=== PATIENT | male | born 1985 | race American Indian/Alaskan Native ===

== ENCOUNTER 2024-08-12 21:51 | Inpatient (IN) | payer MEDICAID ==
[~2024-08-12] VITALS: Ht 185.4 cm; Wt 84.5 kg
[2024-08-12 22:20] LABS: BASOPHILS # (AUTO) 0.1 X10'3 (0-0.2); BASOPHILS % (AUTO) 1.2 % (0-1); EOSINOPHILS # (AUTO) 0.3 X10'3 (0-0.9); HEMATOCRIT 23.2 % (42.0-52.0); HEMOGLOBIN 7.4 g/dl (14.0-17.9); LYMPHOCYTES # (AUTO) 0.6 X10'3 (1.1-4.8); LYMPHOCYTES % (AUTO) 8.7 % (21-51); MEAN CORPUSCULAR HEMOGLOBIN 28.4 PG (27.0-31.0); MEAN CORPUSCULAR HGB CONC 31.8 g/dL (33.0-36.5); MEAN CORPUSCULAR VOLUME 89.2 FL (78-98); MEAN PLATELET VOLUME 8.5 FL (7.4-10.4); MONOCYTES # (AUTO) 0.3 X10'3 (0-0.9); MONOCYTES % (AUTO) 3.9 % (2-12); NEUTROPHILS # (AUTO) 5.5 X10'3 (1.8-7.7); NEUTROPHILS % (AUTO) 82.2 % (42-75); PLATELET COUNT 235 X10'3 (140-440); RED CELL DISTRIBUTION WIDTH 14.3 % (11.5-14.5); WHITE BLOOD COUNT 6.7 X10'3 (4.5-11.0)
[2024-08-12 22:39] LABS: ALANINE AMINOTRANSFERASE 22 U/L (12-78); ALBUMIN 3.1 G/DL (3.4-5.0); ALBUMIN/GLOBULIN RATIO 0.9 (1.1-1.5); ALKALINE PHOSPHATASE 76 IU/L (46-116); ANION GAP 19 (8-16); ASPARTATE AMINO TRANSFERASE 20 U/L (10-37); BILIRUBIN,TOTAL 0.3 MG/DL (0.1-1.0); BLOOD UREA NITROGEN 129 MG/DL (7-18); BUN/CREATININE RATIO 7.7 (10.0-20.0); CALCIUM 6.6 MG/DL (8.5-10.1); CHLORIDE 104 MMOL/L (99-107); CREATININE 16.74 MG/DL (0.60-1.10); GLUCOSE 302 MG/DL (70-104); SODIUM 139 MMOL/L (135-145); TOTAL CARBON DIOXIDE 15.7 MMOL/L (24-32); TOTAL PROTEIN 6.5 G/DL (6.4-8.2); eCRCL 7 ML/MIN; eGFR 3 ML/MIN
[2024-08-12 22:54] LABS: POTASSIUM 6.9 MMOL/L (3.5-5.1)
[2024-08-12] MEDS: PATIROMER CALCIUM SORBITEX 8.4 GM POWD.PACK PO ONE (23:00)
[2024-08-12 23:06] LABS: PRO BRAIN NATRIURETIC PEPTIDE > 30000 PG/ML (0-125)
[2024-08-12] MEDS: sodium bicarbonate (8.4%) 1 mEq/ml syringe IV ONE (23:49)
[2024-08-12] MEDS: dextrose 50%-water 50ml dispensing syringe IV ONE (23:49)
[2024-08-12] MEDS: insulin regular, human 10 units/0.1 ml syringe IV ONE (23:55)
[2024-08-12] MEDS: sodium polystyrene sulfonate 15gm/60ml oral suspension PO ONE (23:57)
[2024-08-13] VITALS (28 sets, daily range): BP systolic 127–185; BP diastolic 60–107; PULSE 77–97; RESP 13–22; TEMP 98.5; O2SAT 83–100
[2024-08-13] MEDS: CALCIUM GLUC 1gm/50ml NACL,iso 50 ML IV PRN (00:33)
[2024-08-13] MEDS: niCARDipine-NS 40mg/200ml IVPB 200 ML IV PRN (00:34)
[2024-08-13 00:35] LABS: ABG BASE EXCESS -10.1 mmol/L (-2.0-3.0); ABG HCO3 14.2 mmol/L (21.0-28.0); ABG OXYGEN SATURATION 95.3 % (94.0-98.0); ABG PCO2 (T) 25.8 mmHg (35.0-48.0); ABG PO2 (T) 87.8 mmHg (83.0-108.0); ALLEN'S TEST Modified; FCOHb 0.3 % (0.5-1.5); FHHb 4.7 % (0.0-5.0); FMetHb 0.3 % (0.0-1.5); FO2Hb 94.7 % (94.0-98.0); MODE RA; TOTAL HEMOGLOBIN 7.7 G/dl (13.5-17.5)
[2024-08-13] MEDS ORDERED: morphine 4 MG/ML inj SYRINge IV PRN (01:05)
[2024-08-13] MEDS ORDERED: acetaminophen 325mg tablet PO PRN (01:05)
[2024-08-13] MEDS: calcium gluconate inj. 3 GM in normal saline 100ml IV soln 100 ML IV ONE ×2 (01:15)
[2024-08-13] MEDS ORDERED: calcium gluconate inj. 1 GM in normal saline 100ml IV soln 40 ML IV SCH (01:20)
[2024-08-13] MEDS ORDERED: calcium gluconate inj. 1 GM in normal saline 100ml IV soln 40 ML IV ONE (01:25)
[2024-08-13 02:22] LABS: PHOSPHORUS 10.4 MG/DL (2.3-4.5)
[2024-08-13] MEDS: ondansetron/PF 4mg/2ml inj IV PRN (02:39)
[2024-08-13] MEDS: morphine 2 MG/ML inj. syringe IV PRN (03:09)
[2024-08-13 04:33] LABS: BILIRUBIN,URINE NEGATIVE (Neg); CLARITY,URINE CLEAR (Clear); COLOR,URINE STRAW (Yellow); GLUCOSE, URINE 250 mg/dl (Neg); KETONES,URINE NEGATIVE (Neg); LEUKOCYTE ESTERASE ,URINE NEGATIVE (Neg); NITRITES, URINE NEGATIVE (Neg); OCCULT BLOOD,URINE SMALL (Neg); PROTEIN,URINE >=300 mg/dl (Neg); UROBILINOGEN,URINE 0.2 E.U/dL (0.2-1.0)
[2024-08-13 04:36] LABS: UA COLLECTION TYPE CLN CATCH MIDSTREAM
[2024-08-13] MEDS ORDERED: glucagon, human recombinant 1mg kit SUBCUT PRN (04:40)
[2024-08-13] MEDS ORDERED: DEXTROSE 15 GM of carb/4 tabs (each vial/BOTTLE has 4 tablets) PO PRN ×2 (04:40)
[2024-08-13] MEDS: proCHLORperazine 10 MG/2 ml inj IV ONE (04:40)
[2024-08-13 04:43] LABS: BACTERIA,URINE FEW /HPF (Neg); MUCUS STRANDS NONE SEEN /LPF (Neg); SQUAMOUS EPITHELIAL CELL,UR FEW /LPF (FEW)
[2024-08-13 04:44] LABS: HEMOGLOBIN A1C 7.7 % (4.5-6.2)
[2024-08-13 04:46] LABS: WBC CLUMPS,URINE FEW /HPF (NEGATIVE)
[2024-08-13 04:46] LABS: ALANINE AMINOTRANSFERASE 21 U/L (12-78); ALKALINE PHOSPHATASE 70 IU/L (46-116); ANION GAP 21 (8-16); ASPARTATE AMINO TRANSFERASE 19 U/L (10-37); BILIRUBIN,TOTAL 0.3 MG/DL (0.1-1.0); BLOOD UREA NITROGEN 131 MG/DL (7-18); BUN/CREATININE RATIO 8.2 (10.0-20.0); CALCIUM 7.3 MG/DL (8.5-10.1); CHLORIDE 105 MMOL/L (99-107); CREATININE 15.96 MG/DL (0.60-1.10); GLUCOSE 224 MG/DL (70-104); POTASSIUM 5.5 MMOL/L (3.5-5.1); SODIUM 140 MMOL/L (135-145); TOTAL PROTEIN 6.1 G/DL (6.4-8.2); eCRCL 7 ML/MIN; eGFR 3 ML/MIN
[2024-08-13] MEDS: amLODIPine 5mg tablet PO ONE (04:46)
[2024-08-13 04:48] LABS: TOTAL CARBON DIOXIDE 14.5 MMOL/L (24-32)
[2024-08-13 05:13] LABS: TOTAL PROTEIN,URINE RANDOM 677.9 MG/DL
[2024-08-13] MEDS: sodium bicarbonate 650mg tablet PO SCH (08:00)
[2024-08-13 08:09] LABS: HEMOGLOBIN A1C 7.5 % (4.5-6.2)
[2024-08-13] MEDS: calcium acetate 667mg (PhosLO) capsule PO SCH (08:15)
[2024-08-13 08:24] LABS: BASOPHILS # (AUTO) 0.1 X10'3 (0-0.2); EOSINOPHILS # (AUTO) 0.1 X10'3 (0-0.9); EOSINOPHILS % (AUTO) 0.8 % (0-6); HEMATOCRIT 23.4 % (42.0-52.0); HEMOGLOBIN 7.4 g/dl (14.0-17.9); LYMPHOCYTES # (AUTO) 1.1 X10'3 (1.1-4.8); LYMPHOCYTES % (AUTO) 14.4 % (21-51); MEAN CORPUSCULAR HEMOGLOBIN 28.4 PG (27.0-31.0); MEAN CORPUSCULAR HGB CONC 31.6 g/dL (33.0-36.5); MEAN CORPUSCULAR VOLUME 89.8 FL (78-98); MEAN PLATELET VOLUME 9.3 FL (7.4-10.4); MONOCYTES # (AUTO) 0.3 X10'3 (0-0.9); MONOCYTES % (AUTO) 3.6 % (2-12); NEUTROPHILS # (AUTO) 6.3 X10'3 (1.8-7.7); NEUTROPHILS % (AUTO) 80.2 % (42-75); PLATELET COUNT 240 X10'3 (140-440); RED CELL DISTRIBUTION WIDTH 14.1 % (11.5-14.5); WHITE BLOOD COUNT 7.9 X10'3 (4.5-11.0)
[2024-08-13] MEDS: INSULIN LISPRO 100 UNIT/ML INSULN.PEN MULTI-DOSE SQ SCH ×2 (08:26→12:00)
[2024-08-13 08:39] LABS: APTT 27 SECONDS (22-32); INR 1.1 INR; PROTHROMBIN TIME 11.8 SECONDS (9.0-12.0)
[2024-08-13] MEDS ORDERED: normal saline 1000ml 100 ML IV PRN (08:40)
[2024-08-13 08:53] LABS: MAGNESIUM 2.3 MG/DL (1.5-2.4)
[2024-08-13] MEDS ORDERED: sodium bicarbonate (8.4%) inj. 50 MEQ in dextrose 5% water 500ml 250 ML IV PRN (09:00)
[2024-08-13] MEDS ORDERED: potassium Cl 20 mEq SR tablet PO PRN ×2 (09:00)
[2024-08-13] MEDS ORDERED: Neutra Phos packet PO PRN (09:00)
[2024-08-13] MEDS ORDERED: sodium bicarbonate (8.4%) inj. 100 MEQ in dextrose 5% water 500ml 500 ML IV PRN (09:00)
[2024-08-13] MEDS ORDERED: potassium Cl 40MEQ/1/2NS 520ml 520 ML IV PRN (09:00)
[2024-08-13] MEDS ORDERED: sodium phosphate inj. 15 MMOL in dextrose 5%-water 250 ML IV PRN (09:00)
[2024-08-13] MEDS ORDERED: dextrose 50%-water 50ml dispensing syringe IV PRN (09:00)
[2024-08-13] MEDS: normal saline 1000ml 1,000 ML IV SCH ×2 (09:00→11:19)
[2024-08-13] MEDS ORDERED: potassium CL 20mEq in D5-1/2NS 1,000 ML IV PRN (09:00)
[2024-08-13] MEDS ORDERED: normal saline 1000ml 1,000 ML IV SCH (09:00)
[2024-08-13] MEDS ORDERED: sodium phosphate inj. 30 MMOL in dextrose 5%-water 250 ML IV PRN (09:00)
[2024-08-13 09:10] LABS: PHOSPHORUS 10.1 MG/DL (2.3-4.5)
[2024-08-13] MEDS: tuberculin, purif. prot. deriv. 5 units/0.1ml ID ONE (09:53)
[2024-08-13] MEDS: insulin regular, human U-100 10ml vial - multi-dose SQ ONE (11:29)
[2024-08-13 11:32] LABS: ALBUMIN 3.2 G/DL (3.4-5.0); ANION GAP 25 (8-16); BLOOD UREA NITROGEN 133 MG/DL (7-18); BUN/CREATININE RATIO 7.9 (10.0-20.0); CALCIUM 7.3 MG/DL (8.5-10.1); CHLORIDE 101 MMOL/L (99-107); CREATININE 16.81 MG/DL (0.60-1.10); GLUCOSE 376 MG/DL (70-104); SODIUM 137 MMOL/L (135-145); eCRCL 7 ML/MIN; eGFR 3 ML/MIN
[2024-08-13] MEDS: insulin regular, human U-100 10ml vial - multi-dose IV ONE (11:33)
[2024-08-13 11:37] LABS: POTASSIUM 7.1 MMOL/L (3.5-5.1); TOTAL CARBON DIOXIDE 11.3 MMOL/L (24-32)
[2024-08-13] MEDS: Insulin Reg/NS 100units/100mL 100 ML IV SCH (11:50)
[2024-08-13] MEDS: proCHLORperazine 10 MG/2 ml inj IV PRN (11:51)
[2024-08-13] MEDS: insulin regular, human 10 units/0.1 ml syringe IV ONE ×2 (11:56)
[2024-08-13] MEDS: sodium bicarbonate (8.4%) 1 mEq/ml syringe IV ONE (12:45)
[2024-08-13] MEDS: CALCIUM GLUC 1gm/50ml NACL,iso 50 ML IV ONE (12:46)
[2024-08-13 15:35] LABS: ALBUMIN 2.9 G/DL (3.4-5.0); ANION GAP 23 (8-16); BLOOD UREA NITROGEN 140 MG/DL (7-18); BUN/CREATININE RATIO 8.2 (10.0-20.0); CALCIUM 7.2 MG/DL (8.5-10.1); CHLORIDE 104 MMOL/L (99-107); CREATININE 17.15 MG/DL (0.60-1.10); GLUCOSE 260 MG/DL (70-104); SODIUM 141 MMOL/L (135-145); eCRCL 7 ML/MIN; eGFR 3 ML/MIN
[2024-08-13 15:36] LABS: PHOSPHORUS 10.1 MG/DL (2.3-4.5)
[2024-08-13 15:37] LABS: TOTAL CARBON DIOXIDE 13.8 MMOL/L (24-32)
[2024-08-13] MEDS: dextrose 5%-1/2 normal saline 1,000 ML IV SCH (15:46)
[2024-08-13] MEDS: heparin 1,000 units/ml 10ml inj HE ONE ×2 (16:17)
[2024-08-13] MEDS: mannitol 12.5gm/50mL VIAL IV ONE (16:42)
[2024-08-13] MEDS ORDERED: METO-411 PO (16:58)
[2024-08-13] MEDS ORDERED: DILT240C52 PO (16:58)
[2024-08-13] MEDS ORDERED: INSU100C10 SQ (16:58)
[2024-08-13] MEDS ORDERED: CLON0.1T2 PO (16:58)
[2024-08-13] MEDS ORDERED: LISI40TA13 PO (16:58)
[2024-08-13] MEDS: hydrALAZINE 20mg/ml inj. IV ONE ×2 (17:35→20:51)
[2024-08-13] MEDS: hydrALAZINE 20mg/ml inj. ONE (17:39)
[2024-08-13] MEDS: metoprolol succinate 25mg (24-HOUR) SR. Tablet PO SCH (17:44)
[2024-08-13] MEDS: acetaminophen 325mg tablet PO PRN (17:50)
[2024-08-13] MEDS: DEXTROSE 10 % AND 0.45 % NACL 1,000 ML IV SCH (18:52)
[2024-08-13] MEDS: COMMUNICATION ORDER 1 EA MISC MC ONE (18:53)
[2024-08-13] MEDS: K and/or MAG REPLACEMENT MC SCH (18:54)
[2024-08-13] MEDS: insulin glargine (Lantus) pen - multi-dose SQ SCH (18:55)
[2024-08-13 19:52] LABS: ALANINE AMINOTRANSFERASE 26 U/L (12-78); ALBUMIN 2.8 G/DL (3.4-5.0); ALBUMIN/GLOBULIN RATIO 0.9 (1.1-1.5); ALKALINE PHOSPHATASE 68 IU/L (46-116); ANION GAP 14 (8-16); ASPARTATE AMINO TRANSFERASE 30 U/L (10-37); BILIRUBIN,TOTAL 0.4 MG/DL (0.1-1.0); BLOOD UREA NITROGEN 79 MG/DL (7-18); BUN/CREATININE RATIO 7.8 (10.0-20.0); CALCIUM 8.3 MG/DL (8.5-10.1); CHLORIDE 103 MMOL/L (99-107); CREATININE 10.18 MG/DL (0.60-1.10); GLUCOSE 75 MG/DL (70-104); PHOSPHORUS 6.3 MG/DL (2.3-4.5); POTASSIUM 3.7 MMOL/L (3.5-5.1); SODIUM 140 MMOL/L (135-145); TOTAL CARBON DIOXIDE 22.8 MMOL/L (24-32); eCRCL 11 ML/MIN; eGFR 6 ML/MIN
[2024-08-14] VITALS (34 sets, daily range): BP systolic 132–188; BP diastolic 57–98; PULSE 66–89; RESP 9–20; TEMP 97.9–98; O2SAT 87–98
[2024-08-14 00:14] LABS: TOTAL PROTEIN,URINE RANDOM 692.4 MG/DL
[2024-08-14] MEDS: insulin Lispro (HumaLOG) vial - multi-dose SQ ONE (03:28)
[2024-08-14 04:05] LABS: BASOPHILS # (AUTO) 0.1 X10'3 (0-0.2); BASOPHILS % (AUTO) 0.8 % (0-1); EOSINOPHILS % (AUTO) 0.5 % (0-6); HEMOGLOBIN 7.7 g/dl (14.0-17.9); LYMPHOCYTES # (AUTO) 0.6 X10'3 (1.1-4.8); LYMPHOCYTES % (AUTO) 6.9 % (21-51); MEAN CORPUSCULAR HEMOGLOBIN 28.3 PG (27.0-31.0); MEAN CORPUSCULAR HGB CONC 32.1 g/dL (33.0-36.5); MEAN CORPUSCULAR VOLUME 87.9 FL (78-98); MEAN PLATELET VOLUME 9.1 FL (7.4-10.4); MONOCYTES # (AUTO) 0.3 X10'3 (0-0.9); MONOCYTES % (AUTO) 3.7 % (2-12); NEUTROPHILS # (AUTO) 7.5 X10'3 (1.8-7.7); NEUTROPHILS % (AUTO) 88.1 % (42-75); PLATELET COUNT 240 X10'3 (140-440); RED BLOOD COUNT 2.73 X10'6 (4.70-6.10); RED CELL DISTRIBUTION WIDTH 13.9 % (11.5-14.5); WHITE BLOOD COUNT 8.5 X10'3 (4.5-11.0)
[2024-08-14 04:30] LABS: ALANINE AMINOTRANSFERASE 27 U/L (12-78); ALBUMIN 2.9 G/DL (3.4-5.0); ALBUMIN/GLOBULIN RATIO 0.9 (1.1-1.5); ALKALINE PHOSPHATASE 72 IU/L (46-116); ANION GAP 23 (8-16); ASPARTATE AMINO TRANSFERASE 26 U/L (10-37); BILIRUBIN,TOTAL 0.5 MG/DL (0.1-1.0); BLOOD UREA NITROGEN 86 MG/DL (7-18); BUN/CREATININE RATIO 7.5 (10.0-20.0); CALCIUM 7.9 MG/DL (8.5-10.1); CHLORIDE 98 MMOL/L (99-107); CREATININE 11.51 MG/DL (0.60-1.10); FREE T4 (FREE THYROXINE) 1.14 NG/DL (0.73-1.40); GLUCOSE 384 MG/DL (70-104); LACTATE DEHYDROGENASE 303 U/L (85-227); MAGNESIUM 1.9 MG/DL (1.5-2.4); PHOSPHORUS 8.1 MG/DL (2.3-4.5); POTASSIUM 5.6 MMOL/L (3.5-5.1); SODIUM 136 MMOL/L (135-145); THYROID STIMULATING HORMONE 2.66 ulU/ml (0.34-4.50); TOTAL PROTEIN 6.2 G/DL (6.4-8.2); eCRCL 10 ML/MIN; eGFR 5 ML/MIN
[2024-08-14 04:37] LABS: TOTAL CARBON DIOXIDE 14.6 MMOL/L (24-32)
[2024-08-14] MEDS: Insulin Reg/NS 100units/100mL 100 ML IV SCH (04:55)
[2024-08-14] MEDS: DEXTROSE 10 % AND 0.45 % NACL 1,000 ML IV SCH (04:55)
[2024-08-14] MEDS: insulin regular, human U-100 10ml vial - multi-dose IV ONE (06:14)
[2024-08-14] MEDS: insulin regular, human 10 units/0.1 ml syringe IV ONE ×2 (07:15→08:14)
[2024-08-14] MEDS: diltiazem CD 120mg capsule (once-daily) PO SCH (07:20)
[2024-08-14] MEDS: COMMUNICATION ORDER 1 EA MISC MC ONE (10:10)
[2024-08-14 10:15] LABS: ALBUMIN 2.6 G/DL (3.4-5.0); ANION GAP 15 (8-16); BLOOD UREA NITROGEN 93 MG/DL (7-18); BUN/CREATININE RATIO 7.8 (10.0-20.0); CALCIUM 7.8 MG/DL (8.5-10.1); CHLORIDE 104 MMOL/L (99-107); CREATININE 11.93 MG/DL (0.60-1.10); GLUCOSE 98 MG/DL (70-104); MAGNESIUM 1.9 MG/DL (1.5-2.4); PHOSPHORUS 8.4 MG/DL (2.3-4.5); POTASSIUM 3.7 MMOL/L (3.5-5.1); SODIUM 141 MMOL/L (135-145); TOTAL CARBON DIOXIDE 21.6 MMOL/L (24-32); eCRCL 10 ML/MIN; eGFR 5 ML/MIN
[2024-08-14] MEDS: dextrose 50%-water 50ml dispensing syringe IV PRN ×2 (10:58→12:03)
[2024-08-14] MEDS: hydrALAZINE 20mg/ml inj. IV ONE (14:38)
[2024-08-14] MEDS: metoprolol tartrate 50mg tablet PO SCH (14:39)
[2024-08-14] MEDS: heparin 1,000 units/ml 10ml inj HE ONE ×2 (14:42→14:43)
[2024-08-14] MEDS: mannitol 12.5gm/50mL VIAL IV ONE (14:44)
[2024-08-14 18:29] LABS: ALBUMIN 2.7 G/DL (3.4-5.0); ANION GAP 15 (8-16); BLOOD UREA NITROGEN 51 MG/DL (7-18); BUN/CREATININE RATIO 7.1 (10.0-20.0); CALCIUM 8.4 MG/DL (8.5-10.1); CHLORIDE 100 MMOL/L (99-107); CREATININE 7.17 MG/DL (0.60-1.10); GLUCOSE 160 MG/DL (70-104); MAGNESIUM 1.7 MG/DL (1.5-2.4); PHOSPHORUS 5.2 MG/DL (2.3-4.5); POTASSIUM 4.2 MMOL/L (3.5-5.1); SODIUM 136 MMOL/L (135-145); TOTAL CARBON DIOXIDE 20.9 MMOL/L (24-32); eCRCL 16 ML/MIN; eGFR 9 ML/MIN
[2024-08-14] MEDS: hydrALAZINE 20mg/ml inj. IV SCH (19:52)
[2024-08-15] VITALS (15 sets, daily range): BP systolic 152–194; BP diastolic 62–102; PULSE 66–87; RESP 11–16; TEMP 97.7–98.8; O2SAT 97–99
[2024-08-15 02:31] LABS: BASOPHILS # (AUTO) 0.1 X10'3 (0-0.2); BASOPHILS % (AUTO) 0.6 % (0-1); EOSINOPHILS # (AUTO) 0.1 X10'3 (0-0.9); EOSINOPHILS % (AUTO) 0.7 % (0-6); HEMATOCRIT 25.9 % (42.0-52.0); HEMOGLOBIN 8.5 g/dl (14.0-17.9); LYMPHOCYTES # (AUTO) 0.9 X10'3 (1.1-4.8); LYMPHOCYTES % (AUTO) 11.3 % (21-51); MEAN CORPUSCULAR HEMOGLOBIN 28.6 PG (27.0-31.0); MEAN CORPUSCULAR HGB CONC 32.8 g/dL (33.0-36.5); MEAN CORPUSCULAR VOLUME 87.2 FL (78-98); MEAN PLATELET VOLUME 8.5 FL (7.4-10.4); MONOCYTES # (AUTO) 0.4 X10'3 (0-0.9); MONOCYTES % (AUTO) 4.8 % (2-12); NEUTROPHILS # (AUTO) 6.6 X10'3 (1.8-7.7); NEUTROPHILS % (AUTO) 82.6 % (42-75); PLATELET COUNT 258 X10'3 (140-440); RED BLOOD COUNT 2.98 X10'6 (4.70-6.10)
[2024-08-15 02:50] LABS: ALANINE AMINOTRANSFERASE 26 U/L (12-78); ALBUMIN 2.6 G/DL (3.4-5.0); ALBUMIN/GLOBULIN RATIO 0.8 (1.1-1.5); ALKALINE PHOSPHATASE 66 IU/L (46-116); ANION GAP 14 (8-16); ASPARTATE AMINO TRANSFERASE 21 U/L (10-37); BILIRUBIN,TOTAL 0.3 MG/DL (0.1-1.0); BLOOD UREA NITROGEN 56 MG/DL (7-18); BUN/CREATININE RATIO 6.9 (10.0-20.0); CALCIUM 7.9 MG/DL (8.5-10.1); CHLORIDE 103 MMOL/L (99-107); CREATININE 8.17 MG/DL (0.60-1.10); GLUCOSE 139 MG/DL (70-104); MAGNESIUM 1.8 MG/DL (1.5-2.4); PHOSPHORUS 7.2 MG/DL (2.3-4.5); POTASSIUM 4.3 MMOL/L (3.5-5.1); SODIUM 140 MMOL/L (135-145); TOTAL CARBON DIOXIDE 22.7 MMOL/L (24-32); TOTAL PROTEIN 5.9 G/DL (6.4-8.2); eCRCL 14 ML/MIN; eGFR 7 ML/MIN
[2024-08-15] MEDS: calcium carbonate 500mg chew tablet PO SCH (12:25)
[2024-08-15] MEDS: INSULIN LISPRO 100 UNIT/ML INSULN.PEN MULTI-DOSE SQ SCH (17:40)
[2024-08-15] MEDS: pantoprazole 40mg Tablet.DR PO SCH (17:45)
[2024-08-15] MEDS: insulin glargine (Lantus) pen - multi-dose SQ SCH (21:28)
[2024-08-16] VITALS (12 sets, daily range): BP systolic 152–179; BP diastolic 71–88; PULSE 69–79; RESP 14–20; TEMP 97.9–98.6; O2SAT 92–99
[2024-08-16 06:37] LABS: BASOPHILS % (AUTO) 0.3 % (0-1); EOSINOPHILS % (AUTO) 0 % (0-6); HEMATOCRIT 26.4 % (42.0-52.0); HEMOGLOBIN 8.2 g/dl (14.0-17.9); LYMPHOCYTES # (AUTO) 0.3 X10'3 (1.1-4.8); LYMPHOCYTES % (AUTO) 2.2 % (21-51); MEAN CORPUSCULAR HEMOGLOBIN 28.1 PG (27.0-31.0); MEAN CORPUSCULAR HGB CONC 30.9 g/dL (33.0-36.5); MEAN CORPUSCULAR VOLUME 90.7 FL (78-98); MEAN PLATELET VOLUME 9.5 FL (7.4-10.4); MONOCYTES # (AUTO) 0.4 X10'3 (0-0.9); MONOCYTES % (AUTO) 2.8 % (2-12); NEUTROPHILS # (AUTO) 13.1 X10'3 (1.8-7.7); NEUTROPHILS % (AUTO) 94.7 % (42-75); PLATELET COUNT 286 X10'3 (140-440); RED BLOOD COUNT 2.91 X10'6 (4.70-6.10); RED CELL DISTRIBUTION WIDTH 14.2 % (11.5-14.5); WHITE BLOOD COUNT 13.8 X10'3 (4.5-11.0)
[2024-08-16 07:03] LABS: ALANINE AMINOTRANSFERASE 23 U/L (12-78); ALBUMIN/GLOBULIN RATIO 0.9 (1.1-1.5); ALKALINE PHOSPHATASE 77 IU/L (46-116); ANION GAP 30 (8-16); ASPARTATE AMINO TRANSFERASE 16 U/L (10-37); BILIRUBIN,TOTAL 0.5 MG/DL (0.1-1.0); BLOOD UREA NITROGEN 80 MG/DL (7-18); BUN/CREATININE RATIO 7.2 (10.0-20.0); CHLORIDE 86 MMOL/L (99-107); CREATININE 11.12 MG/DL (0.60-1.10); MAGNESIUM 1.9 MG/DL (1.5-2.4); POTASSIUM 5.1 MMOL/L (3.5-5.1); SODIUM 130 MMOL/L (135-145); TOTAL PROTEIN 6.4 G/DL (6.4-8.2); eCRCL 10 ML/MIN; eGFR 5 ML/MIN
[2024-08-16 07:04] LABS: PHOSPHORUS 9.9 MG/DL (2.3-4.5)
[2024-08-16 07:05] LABS: GLUCOSE 656 MG/DL (70-104); TOTAL CARBON DIOXIDE 14.1 MMOL/L (24-32)
[2024-08-16] MEDS: INSULIN LISPRO 100 UNIT/ML INSULN.PEN MULTI-DOSE SQ SCH ×3 (07:30→21:00)
[2024-08-16] MEDS: insulin glargine (Lantus) pen - multi-dose SQ SCH ×2 (08:00→21:19)
[2024-08-16] MEDS ORDERED: albumin (human) 25% 100ml IV 100 ML IV PRN ×2 (08:00)
[2024-08-16 08:12] LABS: ANTISTREPTOLYSIN O AB 69.1 IU/mL (0.0-200.0); COMPLEMENT C3, SERUM 99 mg/dL (82-167); COMPLEMENT C4, SERUM 25 mg/dL (12-38)
[2024-08-16] MEDS: insulin regular, human U-100 10ml vial - multi-dose IV ONE (08:17)
[2024-08-16] MEDS: normal saline 1000ml 1,000 ML IV ONE ×3 (11:00→11:50)
[2024-08-16] MEDS ORDERED: normal saline 1000ml 1,000 ML IV SCH (11:50)
[2024-08-16] MEDS: normal saline 1000ml 1,000 ML IV SCH (12:10)
[2024-08-16] MEDS ORDERED: potassium CL 20mEq in D5-1/2NS 1,000 ML IV PRN (12:10)
[2024-08-16] MEDS ORDERED: dextrose 50%-water 50ml dispensing syringe IV PRN (12:10)
[2024-08-16] MEDS ORDERED: sodium bicarbonate (8.4%) inj. 50 MEQ in dextrose 5% water 500ml 250 ML IV PRN (12:10)
[2024-08-16] MEDS ORDERED: sodium bicarbonate (8.4%) inj. 100 MEQ in dextrose 5% water 500ml 500 ML IV PRN (12:10)
[2024-08-16] MEDS ORDERED: INSULIN LISPRO 100 UNIT/ML INSULN.PEN MULTI-DOSE SQ SCH (12:30)
[2024-08-16] MEDS: Insulin Reg/NS 100units/100mL 100 ML IV SCH (13:04)
[2024-08-16] MEDS: INSULIN LISPRO 100 UNIT/ML INSULN.PEN MULTI-DOSE SQ ONE (13:08)
[2024-08-16 13:16] LABS: ANTINUCLEAR ANTIBODIES Negative (Negative)
[2024-08-16] MEDS: metoclopramide 5 mg/ml inj IV PRN (13:56)
[2024-08-16] MEDS: acetaminophen w/codeine (30MG) #3 tablet PO PRN (14:10)
[2024-08-16] MEDS: EPOETIN ALFA-EPBX 20,000 UNIT/ML 1 ML MDV IV ONE ×2 (14:31→14:37)
[2024-08-16] MEDS: heparin 1,000 units/ml 10ml inj HE ONE ×4 (14:33→14:35)
[2024-08-16] MEDS: heparin 1,000 units/ml 10ml inj IV ONE ×2 (14:35)
[2024-08-16] MEDS: heparin 1,000unit/ml 10ml vial 10 ML IV ONE ×2 (14:36)
[2024-08-16 16:07] LABS: ALBUMIN 2.5 G/DL (3.4-5.0); ANION GAP 10 (8-16); BLOOD UREA NITROGEN 37 MG/DL (7-18); CALCIUM 8.2 MG/DL (8.5-10.1); CHLORIDE 101 MMOL/L (99-107); CREATININE 5.32 MG/DL (0.60-1.10); GLUCOSE 156 MG/DL (70-104); POTASSIUM 3.5 MMOL/L (3.5-5.1); SODIUM 136 MMOL/L (135-145); TOTAL CARBON DIOXIDE 25.4 MMOL/L (24-32); eCRCL 22 ML/MIN; eGFR 12 ML/MIN
[2024-08-16 16:37] LABS: STREP A SCREEN NEGATIVE (Neg)
[2024-08-17 02:00] VITALS: BP 170/89; PULSE 74; RESP 14; TEMP 98.1; O2SAT 98
[2024-08-17 05:19] LABS: HBSAG SCREEN Negative (Negative); HEP A AB, IGM Negative (Negative); HEP B CORE AB, IGM Negative (Negative); HEPATITIS C VIRUS ANTIBODY Non Reactive (Non Reactive)
[2024-08-17 06:02] LABS: BASOPHILS % (AUTO) 0.1 % (0-1); EOSINOPHILS % (AUTO) 0.2 % (0-6); HEMATOCRIT 23.4 % (42.0-52.0); HEMOGLOBIN 7.5 g/dl (14.0-17.9); LYMPHOCYTES # (AUTO) 0.9 X10'3 (1.1-4.8); LYMPHOCYTES % (AUTO) 7.4 % (21-51); MEAN CORPUSCULAR HEMOGLOBIN 27.6 PG (27.0-31.0); MEAN CORPUSCULAR HGB CONC 31.9 g/dL (33.0-36.5); MEAN CORPUSCULAR VOLUME 86.6 FL (78-98); MEAN PLATELET VOLUME 8.6 FL (7.4-10.4); MONOCYTES # (AUTO) 0.7 X10'3 (0-0.9); MONOCYTES % (AUTO) 5.5 % (2-12); NEUTROPHILS % (AUTO) 86.8 % (42-75); PLATELET COUNT 235 X10'3 (140-440); RED CELL DISTRIBUTION WIDTH 13.7 % (11.5-14.5); WHITE BLOOD COUNT 12.7 X10'3 (4.5-11.0)
[2024-08-17 06:18] LABS: ALANINE AMINOTRANSFERASE 20 U/L (12-78); ALBUMIN 2.5 G/DL (3.4-5.0); ALBUMIN/GLOBULIN RATIO 0.8 (1.1-1.5); ALKALINE PHOSPHATASE 63 IU/L (46-116); ANION GAP 15 (8-16); ASPARTATE AMINO TRANSFERASE 17 U/L (10-37); BILIRUBIN,TOTAL 0.3 MG/DL (0.1-1.0); BLOOD UREA NITROGEN 44 MG/DL (7-18); BUN/CREATININE RATIO 6.5 (10.0-20.0); CALCIUM 7.8 MG/DL (8.5-10.1); CHLORIDE 94 MMOL/L (99-107); CREATININE 6.77 MG/DL (0.60-1.10); GLUCOSE 139 MG/DL (70-104); MAGNESIUM 1.8 MG/DL (1.5-2.4); PHOSPHORUS 5.6 MG/DL (2.3-4.5); POTASSIUM 3.8 MMOL/L (3.5-5.1); SODIUM 131 MMOL/L (135-145); TOTAL CARBON DIOXIDE 21.7 MMOL/L (24-32); TOTAL PROTEIN 5.5 G/DL (6.4-8.2); eCRCL 17 ML/MIN; eGFR 9 ML/MIN
[2024-08-17 07:00] VITALS: BP 170/70; PULSE 72; RESP 14; TEMP 98.1; O2SAT 94
[2024-08-17] MEDS: INSULIN LISPRO 100 UNIT/ML INSULN.PEN MULTI-DOSE SQ SCH ×2 (07:30→13:08)
[2024-08-17 08:26] VITALS: PULSE 78; RESP 16; O2SAT 98
[2024-08-17 11:00] VITALS: BP 165/76; PULSE 69; RESP 15; TEMP 98.4; O2SAT 98
[2024-08-17] MEDS: NUT.TX.IMP.RENAL FXN,LAC-REDUC (Nepro) 237 ML VANILLA PO SCH (18:00)
[2024-08-17] MEDS: cloNIDine 0.2 MG/24 HR patch (7 day patch) TD ONE (21:10)
[2024-08-17 22:00] VITALS: BP 155/61; PULSE 72; RESP 16; TEMP 98.5; O2SAT 96
[2024-08-18] VITALS (16 sets, daily range): BP systolic 143–197; BP diastolic 57–99; PULSE 72–91; RESP 12–18; TEMP 97.8–99.3; O2SAT 95–98
[2024-08-18] MEDS: metoclopramide 5 mg/ml inj IV SCH (02:00)
[2024-08-18 07:24] LABS: BASOPHILS % (AUTO) 0.2 % (0-1); EOSINOPHILS # (AUTO) 0.1 X10'3 (0-0.9); EOSINOPHILS % (AUTO) 0.8 % (0-6); HEMATOCRIT 22.8 % (42.0-52.0); HEMOGLOBIN 7.9 g/dl (14.0-17.9); LYMPHOCYTES % (AUTO) 9.6 % (21-51); MEAN CORPUSCULAR HEMOGLOBIN 29.3 PG (27.0-31.0); MEAN CORPUSCULAR HGB CONC 34.5 g/dL (33.0-36.5); MEAN PLATELET VOLUME 8.6 FL (7.4-10.4); MONOCYTES # (AUTO) 0.7 X10'3 (0-0.9); MONOCYTES % (AUTO) 6.8 % (2-12); NEUTROPHILS % (AUTO) 82.6 % (42-75); PLATELET COUNT 243 X10'3 (140-440); RED BLOOD COUNT 2.68 X10'6 (4.70-6.10); RED CELL DISTRIBUTION WIDTH 13.1 % (11.5-14.5); WHITE BLOOD COUNT 10.9 X10'3 (4.5-11.0)
[2024-08-18 07:45] LABS: ALANINE AMINOTRANSFERASE 25 U/L (12-78); ALBUMIN 2.4 G/DL (3.4-5.0); ALBUMIN/GLOBULIN RATIO 0.8 (1.1-1.5); ALKALINE PHOSPHATASE 66 IU/L (46-116); ANION GAP 13 (8-16); ASPARTATE AMINO TRANSFERASE 24 U/L (10-37); BILIRUBIN,TOTAL 0.3 MG/DL (0.1-1.0); BLOOD UREA NITROGEN 57 MG/DL (7-18); CALCIUM 7.4 MG/DL (8.5-10.1); CHLORIDE 84 MMOL/L (99-107); CREATININE 8.11 MG/DL (0.60-1.10); GLUCOSE 98 MG/DL (70-104); MAGNESIUM 1.6 MG/DL (1.5-2.4); PHOSPHORUS 5.9 MG/DL (2.3-4.5); POTASSIUM 3.7 MMOL/L (3.5-5.1); TOTAL CARBON DIOXIDE 22.5 MMOL/L (24-32); TOTAL PROTEIN 5.5 G/DL (6.4-8.2); eCRCL 14 ML/MIN; eGFR 8 ML/MIN
[2024-08-18 07:51] LABS: SODIUM 119 MMOL/L (135-145)
[2024-08-18] MEDS ORDERED: albumin (human) 25% 100ml IV 100 ML IV PRN (08:00)
[2024-08-18] MEDS ORDERED: normal saline 1000ml 1,000 ML IV ONE (08:35)
[2024-08-18] MEDS: EPOETIN ALFA-EPBX 20,000 UNIT/ML 1 ML MDV IV ONE (09:49)
[2024-08-18] MEDS: heparin 1,000unit/ml 10ml vial 10 ML IV ONE (09:50)
[2024-08-18] MEDS: heparin 1,000 units/ml 10ml inj HE ONE ×2 (09:51)
[2024-08-18] MEDS: heparin 1,000 units/ml 10ml inj IV ONE (09:52)
[2024-08-18] MEDS: azithromycin 250mg tablet PO SCH (12:26)
[2024-08-18] MEDS: INSULIN LISPRO 100 UNIT/ML INSULN.PEN MULTI-DOSE SQ SCH ×2 (12:30→17:30)
[2024-08-18 13:17] LABS: ATYPICAL PANCA <1:20 titer (Neg:<1:20); CYTOPLASMIC (C-ANCA) <1:20 titer (Neg:<1:20); PERINUCLEAR (P-ANCA) <1:20 titer (Neg:<1:20)
[2024-08-19] VITALS (8 sets, daily range): BP systolic 148–181; BP diastolic 60–91; PULSE 69–87; RESP 13–19; TEMP 97.7–98.9; O2SAT 92–99
[2024-08-19] MEDS: INSULIN LISPRO 100 UNIT/ML INSULN.PEN MULTI-DOSE SQ SCH (07:30)
[2024-08-19] MEDS: metoprolol succinate 25mg (24-HOUR) SR. Tablet PO SCH (08:53)
[2024-08-19 10:07] LABS: BASOPHILS % (AUTO) 0.6 % (0-1); EOSINOPHILS # (AUTO) 0.2 X10'3 (0-0.9); LYMPHOCYTES # (AUTO) 0.8 X10'3 (1.1-4.8); LYMPHOCYTES % (AUTO) 14.1 % (21-51); MEAN CORPUSCULAR HEMOGLOBIN 28.6 PG (27.0-31.0); MEAN CORPUSCULAR HGB CONC 33.6 g/dL (33.0-36.5); MEAN CORPUSCULAR VOLUME 85.2 FL (78-98); MEAN PLATELET VOLUME 8.3 FL (7.4-10.4); MONOCYTES # (AUTO) 0.5 X10'3 (0-0.9); NEUTROPHILS % (AUTO) 72.3 % (42-75); PLATELET COUNT 195 X10'3 (140-440); RED BLOOD COUNT 2.41 X10'6 (4.70-6.10); RED CELL DISTRIBUTION WIDTH 13.4 % (11.5-14.5); WHITE BLOOD COUNT 5.5 X10'3 (4.5-11.0)
[2024-08-19 10:11] LABS: HEMOGLOBIN 6.9 g/dl (14.0-17.9)
[2024-08-19 10:12] LABS: HEMATOCRIT 20.5 % (42.0-52.0)
[2024-08-19 10:19] LABS: ALANINE AMINOTRANSFERASE 22 U/L (12-78); ALBUMIN/GLOBULIN RATIO 0.8 (1.1-1.5); ALKALINE PHOSPHATASE 62 IU/L (46-116); ANION GAP 7 (8-16); ASPARTATE AMINO TRANSFERASE 20 U/L (10-37); BILIRUBIN,TOTAL 0.3 MG/DL (0.1-1.0); BLOOD UREA NITROGEN 36 MG/DL (7-18); BUN/CREATININE RATIO 5.5 (10.0-20.0); CALCIUM 7.1 MG/DL (8.5-10.1); CHLORIDE 90 MMOL/L (99-107); GLUCOSE 208 MG/DL (70-104); POTASSIUM 3.6 MMOL/L (3.5-5.1); SODIUM 121 MMOL/L (135-145); TOTAL CARBON DIOXIDE 23.9 MMOL/L (24-32); TOTAL PROTEIN 4.6 G/DL (6.4-8.2); eCRCL 18 ML/MIN; eGFR 10 ML/MIN
[2024-08-19] MEDS ORDERED: cloNIDine 0.2 MG/24 HR patch (7 day patch) TD ONE (17:25)
[2024-08-19 18:10] LABS: HEMOGLOBIN 7.3 g/dl (14.0-17.9); MEAN CORPUSCULAR HGB CONC 33.7 g/dL (33.0-36.5); MEAN PLATELET VOLUME 8.9 FL (7.4-10.4); PLATELET COUNT 220 X10'3 (140-440); RED CELL DISTRIBUTION WIDTH 13.5 % (11.5-14.5); WHITE BLOOD COUNT 6.3 X10'3 (4.5-11.0)
[2024-08-19 18:19] LABS: HEMATOCRIT 21.5 % (42.0-52.0)
[2024-08-19] MEDS ORDERED: insulin Lispro (HumaLOG) vial - multi-dose SQ SCH (19:10)
[2024-08-19] MEDS: INSULIN LISPRO 100 UNIT/ML INSULN.PEN MULTI-DOSE SQ ONE (19:38)
[2024-08-20] VITALS (11 sets, daily range): BP systolic 161–191; BP diastolic 74–92; PULSE 64–78; RESP 12–20; TEMP 97.8–98.5; O2SAT 96–100
[2024-08-20 07:45] LABS: HEMATOCRIT 23.8 % (42.0-52.0); HEMOGLOBIN 8.1 g/dl (14.0-17.9); MEAN CORPUSCULAR HEMOGLOBIN 28.6 PG (27.0-31.0); MEAN CORPUSCULAR VOLUME 84.2 FL (78-98); MEAN PLATELET VOLUME 8.3 FL (7.4-10.4); PLATELET COUNT 291 X10'3 (140-440); RED BLOOD COUNT 2.83 X10'6 (4.70-6.10); WHITE BLOOD COUNT 6.8 X10'3 (4.5-11.0)
[2024-08-20 08:28] LABS: ALBUMIN 2.2 G/DL (3.4-5.0); ANION GAP 11 (8-16); BLOOD UREA NITROGEN 50 MG/DL (7-18); BUN/CREATININE RATIO 6.3 (10.0-20.0); CALCIUM 7.7 MG/DL (8.5-10.1); CHLORIDE 92 MMOL/L (99-107); CREATININE 7.99 MG/DL (0.60-1.10); POTASSIUM 3.3 MMOL/L (3.5-5.1); SODIUM 127 MMOL/L (135-145); TOTAL CARBON DIOXIDE 24.4 MMOL/L (24-32); eCRCL 14 ML/MIN; eGFR 8 ML/MIN
[2024-08-20 08:48] LABS: GLUCOSE 43 MG/DL (70-104)
[2024-08-20] MEDS: EPOETIN ALFA-EPBX 20,000 UNIT/ML 1 ML MDV IV ONE (10:00)
[2024-08-20] MEDS: heparin 1,000 units/ml 10ml inj IV ONE (10:00)
[2024-08-20] MEDS: heparin 1,000 units/ml 10ml inj HE ONE ×2 (10:01)
[2024-08-20] MEDS: heparin 1,000unit/ml 10ml vial 10 ML IV ONE (10:02)
[2024-08-20] MEDS: minoxidil 2.5mg tablet PO SCH (11:55)
[2024-08-20] MEDS: hydrALAZINE 20mg/ml inj. IV PRN (13:06)
[2024-08-20] MEDS ORDERED: polyethylene glycol 3350 17gm powd pack PO SCH (21:00)
[2024-08-21] MEDS ORDERED: amLODIPine 5mg tablet PO SCH (08:00)
== END 2024-08-20 18:00 | disposition left against medical advice (07) | DRG 199 ==
LOC: ER 21:52 → ED HOLD 08-13 01:08 → CICU 2S 08-13 04:03 → PCU 3S 08-15 10:48
PROVIDERS: ADMIT Internal Medicine Critical Care Medicine; ATTEND Internal Medicine Critical Care Medicine
PROC: 5A1D70Z Performance of Urinary Filtration, Intermittent, Less than 6 Hours Per Day (ICD-10-PCS; 2024-08-13)
PROC: 05HY33Z Insertion of Infusion Device into Upper Vein, Percutaneous Approach (ICD-10-PCS; principal; 2024-08-14)
PROC: B54MZZA Ultrasonography of Right Upper Extremity Veins, Guidance (ICD-10-PCS; 2024-08-14)
PROC: 5A1D70Z Performance of Urinary Filtration, Intermittent, Less than 6 Hours Per Day (ICD-10-PCS; 2024-08-14)
PROC: 5A1D70Z Performance of Urinary Filtration, Intermittent, Less than 6 Hours Per Day (ICD-10-PCS; 2024-08-16)
PROC: 5A1D70Z Performance of Urinary Filtration, Intermittent, Less than 6 Hours Per Day (ICD-10-PCS; 2024-08-18)
PROC: CD171ZZ Planar Nuclear Medicine Imaging of Gastrointestinal Tract using Technetium 99m (Tc-99m) (ICD-10-PCS; 2024-08-20)
PROC: 5A1D70Z Performance of Urinary Filtration, Intermittent, Less than 6 Hours Per Day (ICD-10-PCS; 2024-08-20)
DX: I16.1 Hypertensive emergency (principal); E10.10 Type 1 diabetes mellitus with ketoacidosis without coma; I42.8 Other cardiomyopathies; N17.9 Acute kidney failure, unspecified; I50.20 Unspecified systolic (congestive) heart failure; E10.319 Type 1 diabetes mellitus with unspecified diabetic retinopathy without macular edema; E83.39 Other disorders of phosphorus metabolism; N18.6 End stage renal disease; E10.22 Type 1 diabetes mellitus with diabetic chronic kidney disease; E87.5 Hyperkalemia; D50.9 Iron deficiency anemia, unspecified; Z53.21 Procedure and treatment not carried out due to patient leaving prior to being seen by health care provider; I13.2 Hypertensive heart and chronic kidney disease with heart failure and with stage 5 chronic kidney disease, or end stage renal disease; Z79.899 Other long term (current) drug therapy; Z79.4 Long term (current) use of insulin
CPT/HCPCS: 36415; 36600; 71045; 71250; 71270; 76770; 78264; 80048; 80053; 80069; 80074; 81001; 82330; 82570; 82803; 82948; 83036; 83540; 83550; 83605; 83615; 83735; 83880; 83970; 84100; 84133; 84156; 84300; 84439; 84443; 84484; 84540; 85018; 85025; 85027; 85610; 85651; 85730; 86038; 86060; 86160; 86256; 86706; 86803; 86885; 86900; 86901; 86920; 87040; 87081; 87088; 87207; 87340; 87522; 87880; 93005; 93306; 94760; 99291; 99292; A4615; A6213; A6449; A9541; C1752; E1594; G0257; G0378; J0360; J0610; J0780; J1644; J1815; J2150; J2270; J2405; J2765; J3490; J7030; J7040; Q4081